=== PATIENT | female | born 1955 | race Caucasian/White ===

== ENCOUNTER 2017-01-12 09:43 | Emergency (ER) | payer OTHER ==
[~2017-01-12] VITALS: Ht 162.6 cm; Wt 89.0 kg
[~2017-01-12 09:43] MED LIST: HYDR-3498 PO; ONDA4TAB35 PO; SITA1TAB7 PO
[2017-01-12 09:47] VITALS: Ht 162.6 cm; Wt 89.0 kg
--- NOTE | 2017-01-12 10:14 | ERD ---
ER Documentation Chief Complaint Date/Time DATE: 01/12/17 Chief Complaint Back pain radiating down the left lower extremity HPI The patient is a 61-year-old female with a history of hypertension and diabetes mellitus, who presents to the Emergency Department with complaint of low back pain radiating down the left lower extremity. The patient reports that approximately one month ago she had a mechanical trip and fall. She woke up the next morning with no pain. However, several days later began to experience lumbar back pain that has since begun to radiate down the left lower extremity with intermittent paresthesias. She rates her current pain as 4 out of 10, though has not yet taken any medication for pain relief. The pain is worse with movement and forward flexion, and mildly improved at rest. Denies any bowel or bladder disturbances, urinary retention or lower extremity numbness or weakness. Denies saddle-region anesthesia. Denies dysuria, hematuria or flank pain. Denies fevers, sweats, chills, nausea or vomiting. Denies abdominal pain. Denies chest pain, palpitations or shortness of breath. Denies history of IV drug use. Denies any rashes to the area. ROS All systems reviewed and are negative except as per history of present illness. Medications Home Meds Active Scripts Ibuprofen* (Motrin*) 600 Mg Tab, 600 MG PO Q6, #30 TAB Prov:CARINE HINDS PA-C 01/12/17 Hydrocodone/Acetaminophen ([place] 5-325 Tablet) 1 Each Tablet, 1 EACH PO Q6, #10 TAB Prov:CARINE HINDS PA-C 01/12/17 Methylprednisolone* (Medrol* DOSE PACK) 4 Mg/Dose-Pack Tab.ds.pk, 4 MG PO . DIRECTED, #1 PACKET Prov:CARINE HINDS PA-C 01/12/17 Ondansetron Hcl* (Zofran* ODT) 4 mg -ODT Tab.disper, 4 MG PO Q6 Y for NAUSEA AND /OR VOMITING, #30 TAB Prov:YOBANY SAMANO MD 07/22/15 Hydrocodone Bit-Acetaminophen* ([place]*) 5-325 Mg Tab, 1 TAB PO Q6 Y for PAIN, # 7 TAB Prov:YOBANY SAMANO MD 07/22/15 Reported Medications Sitagliptin Phos-Metformin Hcl (Janumet) 50-1,000 Mg Tablet, 1 TAB PO BID, TAB 07/22/15 Allergies Allergies: Coded Allergies: No Known Allergy (Unverified , 01/12/17) PMhx/Soc Medical and Surgical Hx: pt denies Surgical Hx History of Surgery: No Anesthesia Reaction: No Hx Neurological Disorder: No Hx Respiratory Disorders: No Hx Cardiac Disorders: Yes (HTN) Hx Psychiatric Problems: No Hx Miscellaneous Medical Probl: Yes (DM) Hx Alcohol Use: No Hx Substance Use: No Hx Tobacco Use: No Smoking Status: Never smoker Physical Exam Vitals Vital Signs Date Time Temp Pulse Resp B/P Pulse Ox O2 Delivery O2 Flow Rate FiO2 01/12/17 11:38 98.4 75 19 146/87 100 Room Air 01/12/17 09:47 98.1 74 18 160/90 99 Physical Exam GENERAL: Well-developed, well-nourished, female, in no acute distress. HEENT: Head is normocephalic, atraumatic. No scleral pallor or icterus. Pupils equal, round and reactive to light. Extraocular movements intact. Conjunctiva pink. Moist mucous membranes. NECK: Supple. No masses, no tenderness, no lymphadenopathy. Trachea midline. Full range of motion. RESPIRATORY: Lungs are clear to auscultation bilaterally. No rales, rhonchi or wheezing. Equal breath sounds. Normal expiratory effort. CARDIOVASCULAR: Regular rate and rhythm. S1 and S2 normal.. GASTROINTESTINAL: Abdomen is soft, non-tender, and non-distended. No guarding, no rebound tenderness. Normal bowel sounds. No pulsatile abdominal masses. No gross peritonitis. FLANK: No CVA tenderness. BACK: No midline tenderness. Normal flexion and extension. Tenderness to palpation over the paraspinal muscles of the left lumbar back. No saddle region anesthesia. Positive left-sided straight leg raise. Negative right-sided straight leg raise. No foot drop. 5 out of 5 strength lower extremities bilaterally. No vertebral point tenderness. No crepitus. No step-offs. EXTREMITIES: No clubbing, cyanosis, or edema. Normal skin perfusion. Moving all extremities. No focal swelling or erythema. Distal pulses are palpable, 2+ bilaterally. Capillary refill is less than 2 seconds NEUROLOGIC: The patient is alert, awake, and oriented x 3. No focal neurologic deficits. Motor and sensation grossly intact. INTEGUMENT: Skin is intact. Warm and dry. No rashes, no petechiae present. PSYCHIATRIC: Cooperative; appropriate. Results 24 hrs Current Medications Medications (Trade) Dose Ordered Sig/Joseph Route PRN Reason Start Time Stop Time Status Last Admin Dose Admin Acetaminophen/ Hydrocodone Bitart ([place] (5/325)) 1 tab ONCE ONCE PO 01/12/17 10:30 01/12/17 10:31 DC 01/12/17 10:38 Procedures/MDM The patient's case was reviewed and discussed with Dr. Gorman, who agrees with the plan of care including labs, treatment, and advanced imaging as appropriate. DIAGNOSTIC TESTS AND INTERPRETATION: PROCEDURE: CT Lumbar Spine. CLINICAL INDICATION: Lower back pain radiating down left lower extremity. TECHNIQUE: Noncontrast CT of the lumbar spine was performed with multiplanar reformatted images generated from the axial acquired data. The administered radiation dose was CTDI vol = 28.98 mGy, DLP = seventh 59.36 mGy-cm. One or more of the following dose reduction techniques were used: Automated exposure control, Adjustment of the mA and/or kV according to patient size, or Use of iterative reconstruction technique. COMPARISON: There are no similar studies submitted for comparison. FINDINGS: There is normal lumbar lordosis. The vertebral body heights are maintained. There is normal alignment. There is no destructive osseous lesion. There is no acute fracture. The anterior posterior diameter of the spinal canal is 13 mm compatible with congenital spinal canal stenosis. T12-L1 : There is mild disk space narrowing. There is a 1 mm broad-based disk osteophyte complex and mild bilateral facet arthropathy without spinal canal or bilateral foraminal stenosis. L1-L2 : There is mild disk space narrowing. There is 1 mm broad-based disk osteophyte complex without spinal canal or bilateral foraminal stenosis. L2-L3 : There is a 2 mm broad-based disk osteophyte complex and mild bilateral facet arthropathy without spinal canal or bilateral foraminal stenosis. L3-L4 : There is a 2 mm broad-based disk bulge and moderate bilateral facet arthropathy and ligamentum flavum infolding with mild spinal canal stenosis. There is moderate left with mild to moderate right foraminal stenosis. L4-L5 : There is mild disk space narrowing. There is a 3 mm circumferential disk bulge with moderate bilateral facet arthropathy and ligamentum flavum infolding causing moderate spinal canal stenosis. There is severe left without right foraminal stenosis impinging the exiting left L4 nerve root. L5-S1 : There is moderate to severe disk space narrowing. There is a 5 mm circumferential disk bulge with severe left and moderate facet arthropathy with mild to moderate spinal canal stenosis. There is moderate right with severe left foraminal stenosis impinging the exiting left L5 nerve root. The sacroiliac joints are intact. There are prominent right and moderate left sacroiliac joint osteophytes. IMPRESSION: 1. Congenital spinal canal stenosis. 2. No acute fracture. 3. L4-L5 circumferential disk bulge with moderate spinal canal stenosis. There is severe left foraminal stenosis impinging the exiting left L4 nerve root. 4. L5-S1 circumferential disk bulge with mild to moderate spinal canal stenosis. There is severe left foraminal stenosis impinging the exiting left L5 nerve root. Further findings as detailed above. .Maxim Sam MD, MD Date Time Electronically viewed and signed by .Maxim Sam MD, MD on 01/12/2017 10:47 Results of imaging studies discussed with Dr. Gorman, ED supervising physician , who recommends that the patient be discharged home with [place] and Medrol dosepak to folLow up with PMD. MEDICAL DECISION MAKING: This is a 61-year-old female presenting to the Emergency Department with complaint of lumbar back pain radiating down the left lower extremity. On physical examination the patient had tenderness to palpation =noted over the lumbar back, particularly L4-S1. She had a positive left straight leg raise and crossed leg raise, with no saddle-region anesthesia noted. Vital signs were stable. She exhibited no altered mental status, neurologic deficits, saddle anesthesia, bowel or bladder disturbances, incontinence, urinary retention, or lower extremity motor or sensory deficits. The differential diagnosis includes, but is not limited to cauda equina syndrome , epidural abscess, epidural hematoma, osteomyelitis, vertebral fracture, lumbosacral strain, herniated disc, spinal stenosis, nephrolithiasis, osteoarthritis, sciatica, spondylolisthesis, bursitis, fracture, pyelonephritis , abdominal aortic aneurysm, aortic dissection, herpes zoster, radiculopathy, myelopathy, neoplastic disease. CT imaging reviewed circumferential disc bulges at L4-L5 and L5-S1 with spinal canal stenosis, and left foraminal stenosis impinging on the exiting nerve roots. After rest and administration of [place], the patient reports no new complaints, and decreased pain. Upon my review and interpretation of the patient's presentation, clinical data, and overall ER course, I believe the patient's symptoms are most consistent with lumbar back pain with sciatica, likely secondary to herniated disc. I doubt cord compression or cauda equina syndrome, as patient is with equal, strong motor in bilateral lower extremities, no bowel/bladder disturbances, incontinence or retention, no saddle-anesthesia. Doubt vertebral fracture, no midline bony tenderness, no history of significant recent trauma. Doubt neoplastic disease, metastases unlikely given no night sweats, systemic symptoms , no risk factors. Doubt epidural abscess, patient is afebrile, with no history of IV drug use and is immunocompetent. Renal/aortic pathology not consistent with patient history or physical examination, no pulsatile abdominal masses, equal pulses bilaterally. Doubt pyelonephritis, no systemic symptoms, no flank pain, no CVA tenderness. Doubt zoster, no vesicular lesions noted. At this time, the patient is in stable condition and therefore can be discharged home with a prescription for [place] and Medrol Dosepack and strict return precautions for signs of deteriorating or worsening condition. The patient is advised to follow up with her primary care provider within 1-2 days for reevaluation and further management, or return to the ER sooner for any new or worsening symptoms. She will likely need an MRI as an outpatient. I shared my medical decision making and plan with the patient at length and in great detail, and the patient verbally understands and agrees with the plan for further observation and care as an outpatient. At the time of discharge, all questions were answered. Departure Diagnosis: Primary Impression: Lumbar back pain Chronicity: acute Back pain laterality: bilateral Sciatica presence: with sciatica Sciatica laterality: sciatica of left side Qualified Code: M54.42 - Acute bilateral low back pain with left-sided sciatica Additional Impressions: Sciatica Laterality: left Qualified Code: M54.32 - Sciatica of left side Herniated intervertebral disc Spinal region: lumbar Qualified Code: M51.26 - Herniation of intervertebral disc of lumbar spine Condition: Stable Patient Instructions: Back Pain W/ Sciatica, Herniated Intervertebral Disc, Understanding Sciatica Additional Instructions: Llame al doctor MAANA y yamilet cisco IMAN PARA DENTRO DE 1-2 PHIPPS.Dgale a la secretaria que nosotros le instruimos hacer esta iman.Avise o llame si agudelo condicin se empeora antes de la iman. Regresa aqui si peor o no mejor. CARINE HINDS PA-C Jan 12, 2017 10:14
[2017-01-12] MEDS ORDERED: HYDROCODONE/APAP (5/325) TAB PO ONE (10:30)
--- NOTE | 2017-01-12 10:47 | RADRPT ---
PROCEDURE: CT Lumbar Spine. CLINICAL INDICATION: Lower back pain radiating down left lower extremity. TECHNIQUE: Noncontrast CT of the lumbar spine was performed with multiplanar reformatted images gen erated from the axial acquired data. The administered radiation dose was CTDI vol = 28.98 mGy, DLP = seventh 59.36 mGy-cm. One or more of the following dose reduction techniques were used: Automated exposure control, Adjustment of the mA and/or kV according to patient size, or Use of iterative vinod nstruction technique. COMPARISON: There are no similar studies submitted for comparison. FINDINGS: There is normal lumbar lordosis. The vertebral body heights are maintained. There is normal alignment. There is no destructive osseous lesion. There is no acute fracture. The anterior posterior diameter of the spinal canal is 13 mm compatible with congenital spinal canal stenosis. T12-L1 : There is mild disk space narrowing. There is a 1 mm broad-based disk osteophyte complex an d mild bilateral facet arthropathy without spinal canal or bilateral foraminal stenosis. L1-L2 : There is mild disk space narrowing. There is 1 mm broad-based disk osteophyte complex witho ut spinal canal or bilateral foraminal stenosis. L2-L3 : There is a 2 mm broad-based disk osteophyte complex and mild bilateral facet arthropathy wit hout spinal canal or bilateral foraminal stenosis. L3-L4 : There is a 2 mm broad-based disk bulge and moderate bilateral facet arthropathy and ligament um flavum infolding with mild spinal canal stenosis. There is moderate left with mild to moderate r ight foraminal stenosis. L4-L5 : There is mild disk space narrowing. There is a 3 mm circumferential disk bulge with moderat e bilateral facet arthropathy and ligamentum flavum infolding causing moderate spinal canal stenosis . There is severe left without right foraminal stenosis impinging the exiting left L4 nerve root. L5-S1 : There is moderate to severe disk space narrowing. There is a 5 mm circumferential disk bulg e with severe left and moderate facet arthropathy with mild to moderate spinal canal stenosis. Ther e is moderate right with severe left foraminal stenosis impinging the exiting left L5 nerve root. The sacroiliac joints are intact. There are prominent right and moderate left sacroiliac joint osteo phytes. IMPRESSION: 1. Congenital spinal canal stenosis. 2. No acute fracture. 3. L4-L5 circumferential disk bulge with moderate spinal canal stenosis. There is severe left jennifer inal stenosis impinging the exiting left L4 nerve root. 4. L5-S1 circumferential disk bulge with mild to moderate spinal canal stenosis. There is severe l eft foraminal stenosis impinging the exiting left L5 nerve root. Further findings as detailed above. RPTAT: AA .Maxim Sam MD, MD Date Time Electronically viewed and signed by .Maxim Sam MD, on 01/12/2017 10:47 .F/
[2017-01-12] MEDS ORDERED: MED4DP PO (11:21)
[2017-01-12] MEDS ORDERED: HYDR-906 PO (11:22)
[2017-01-12] MEDS ORDERED: IBUP-1542 PO (11:22)
[2017-01-12 11:38] VITALS: BP 146/87; PULSE 75; RESP 19; TEMP 98.4
== END 2017-01-12 11:38 | disposition home or self-care (01) ==
LOC: FTE 09:43
DX: M54.42 Lumbago with sciatica, left side (principal); M51.26 Other intervertebral disc displacement, lumbar region; E11.9 Type 2 diabetes mellitus without complications; I10 Essential (primary) hypertension
CPT/HCPCS: 72131; Z7502; Z7610